=== PATIENT | male | born 1940 | race Hispanic/Latino ===

== ENCOUNTER 2017-12-30 12:23 | Day surgery (SDC) | payer MEDICARE ==
[2017-12-28 08:37] VITALS: BMI 23.9
[2017-12-30] MEDS ORDERED: ceFAZolin 1 gm in NS 2 GM/200 ML BAG IVPB ONE (13:05)
[2017-12-30] MEDS ORDERED: Lidocaine Hydrochloride 10 ML INJ ONE (13:05)
[2017-12-30] MEDS ORDERED: HEPARIN-NS 5,000 UNITS/500 ML 5,000 UNIT/500 ML BAG IV ONE (13:06)
[2017-12-30] MEDS ORDERED: Propofol 10 mg/ml Inj (20 ML) ONE ×2 (13:15→14:02)
[2017-12-30] MEDS ORDERED: Midazolam 2 MG/2 ML VIAL ONE (13:15)
--- NOTE | 2017-12-30 14:25 | PCM.SURG1 ---
Surgeon's Initial Post Op Note - Surgeon's Notes Surgeon: Dr. Moreno It Service Technician: Dr. Puentes Type of Anesthesia: General IV Pre-Operative Diagnosis: Bladder CA Operative Findings: See operative Dictation Post-Operative Diagnosis: Bladder CA Operation Performed: Portacath Placement R IJ Specimen/Specimens Removed: None Estimated Blood Loss: EBL {In ML}: 5 Blood Products Given: N/A Drains Used: No Drains Post-Op Condition: Good Date of Surgery/Procedure: 12/30/17 Time of Surgery/Procedure: 14:26
[2017-12-30 15:41] VITALS: RESP 16; TEMP 97.1
[2017-12-30 16:11] VITALS: PULSE 93
[2017-12-30 16:57] VITALS: BP 135/68; O2SAT 99
--- NOTE | 2017-12-30 18:15 | RAD ---
Chest x-ray single frontal view History: Chest pain. Comparison: 12/30/2017 Findings: Right chest wall port with tip extending into the right SVC. Biapical pleural thickening with upper lobe granulomatous changes. Diffuse increased interstitial lung markings bilaterally. Consolidative opacifications seen within the right hilar region, right infrahilar region, and right lung base. Nodularity at the left lung base. Additional patchy consolidative changes at the left lung base. Degenerative changes spine and shoulders. Impression: Right chest wall port with tip extending into the right SVC. Biapical pleural thickening with upper lobe granulomatous changes. Diffuse increased interstitial lung markings bilaterally. Consolidative opacifications seen within the right hilar region, right infrahilar region, and right lung base. Nodularity at the left lung base. Additional patchy consolidative changes at the left lung base.
--- NOTE | 2017-12-30 23:11 | OP ---
PROCEDURE DATE: 12/30/2017 SURGEON: Teto Moreno MD BAND INSTRUMENT MAKER: Dr. Durbin. TYPE OF ANESTHESIA: Local with IV sedation. ANESTHESIOLOGIST: Dr. Braun. PREOPERATIVE DIAGNOSIS: Bladder cancer. POSTOPERATIVE DIAGNOSIS: Bladder cancer. PROCEDURE: Right internal jugular port-A-cath placement. DESCRIPTION OF PROCEDURE: With the patient in the supine position, having received IV sedation, the right upper chest and lower neck were prepped and draped in the usual sterile manner; 1% lidocaine was infiltrated and an attempt was made at right subclavian vein puncture; however, venous access was not obtained. Attention was then turned to the right internal jugular where after infiltration of 1% lidocaine, right internal jugular vein puncture was performed via the middle approach. A guidewire was passed, positioned was checked with C-arm. The skin overlying the right pectoral region was then infiltrated with 1% lidocaine. A subcutaneous pocket was created of size adequate to accommodate the port, and after additional infiltration, the catheter was tunneled from the pocket side to the insertion side. The vein, dilator, and introducer were passed over the guidewire into the superior vena cava, and the position was again confirmed with C-arm. The dilator and guidewire were removed. The catheter was passed via the introducer and positioned in the lower portion of the superior vena cava. The introducer was removed. The position was again confirmed with C-arm and the catheter was trimmed at 20 cm from the tip at the side. The port portion of the 8-[place] titanium power port was then fixed to the catheter using the attachment device. The catheter was aspirated for blood return, flushed with heparinized saline. The port was placed into the previously created pocket and fixed to the underlying pectoral fascia with a 3-0 Prolene suture and the pocket was closed with running subcuticular suture of 4-0 Monocryl and Steri-Strips. C-arm was again used to confirm proper placement of the catheter system, and the catheter was again aspirated for blood return and flushed with heparinized saline. Steri-Strips and dry sterile dressings were applied. The patient tolerated the procedure well and transferred to recovery room in stable condition. Estimated blood loss for the procedure was 5 mL. Teto Moreno MD [facility] # [id number]
--- NOTE | 2017-12-31 07:51 | RAD ---
PROCEDURE: Intraoperative Fluoroscopy. HISTORY: BLADDER CANCER FINDINGS: Fluoroscopic assistance was provided for Port-A-Cath placement. Please refer to the operative report from REEMA Garner.
== END 2017-12-30 16:56 | disposition home or self-care (01) ==
LOC: C.SDS 12:23
PROVIDERS: ATTEND Specialist
DX: C67.9 Malignant neoplasm of bladder, unspecified (principal); Z79.84 Long term (current) use of oral hypoglycemic drugs; Z79.899 Other long term (current) drug therapy; E11.9 Type 2 diabetes mellitus without complications; Z87.891 Personal history of nicotine dependence
CPT/HCPCS: 36561; 71045; 82948; C1788; J0690; J2250; J2704; J3010; J7040